=== PATIENT | male | born 1975 | race Caucasian/White ===

== ENCOUNTER 2022-12-08 06:52 | Day surgery (SDC) | payer BC ==
[~2022-12-08 06:52] MED LIST: Midazolam 1 MG/ML 2 ML SDV ONE; Propofol 200 MG/20 ML SDV ONE
[2022-12-08] MEDS ORDERED: Sodium Chloride 0.9% 10 ML Syringe FLUSH PRN (07:00)
[2022-12-08] MEDS: Lactated Ringers 1,000 ML IV SCH (07:07)
== END 2022-12-08 09:50 | disposition home or self-care (01) ==
LOC: LL.SDS 06:52
PROVIDERS: ATTEND Surgery
DX: K63.5 Polyp of colon (principal); K64.9 Unspecified hemorrhoids; I10 Essential (primary) hypertension; Z79.899 Other long term (current) drug therapy
CPT/HCPCS: 00812; J2250; J2704; J7120